=== PATIENT | male | born 1990 | race Caucasian/White ===

== ENCOUNTER 2017-06-10 23:08 | Emergency (ER) | payer SELFPAY, MEDICAID ==
[2017-06-10] MEDS: HYDROmorphONE 2 MG/ML SYG IV (23:38)
[2017-06-10] MEDS: ONDANSETRON 4 MG INJ IV (23:38)
[2017-06-10] MEDS: CEFTRIAXONE 1 GM/50 ML (PMX) 50 ML IVPB (23:39)
[2017-06-11 00:04] LABS: ANION GAP 22 (8-16); BLOOD UREA NITROGEN 14 mg/dl (7-20); CALCIUM 9.6 mg/dl (8.4-10.2); CARBON DIOXIDE 20 mmol/L (21-31); CHLORIDE 105 mmol/L (97-110); CREATININE 1.28 mg/dl (0.61-1.24); GLUCOSE 116 mg/dl (70-220); POTASSIUM 3.2 mmol/L (3.5-5.1); SODIUM 144 mmol/L (135-144)
[2017-06-11] MEDS: IOHEXOL 300MG/ML 150 ML BTL (00:09)
[2017-06-11] MEDS: SOD CHLORIDE 0.9% 100 ML (00:10)
[2017-06-11] MEDS: HYDROmorphONE 0.5 MG/0.5 ML SYG IV (00:38)
[2017-06-11] MEDS: ONDANSETRON 4 MG INJ IV ×2 (00:38→02:32)
[2017-06-11] MEDS: SOD CHLORIDE 0.9% 1,000 ML IV (00:41)
[2017-06-11] MEDS: HYDROmorphONE 2 MG/ML SYG IV (02:32)
== END 2017-06-11 06:08 | disposition home or self-care (01) ==
LOC: E/R 23:08
DX: S71.102A Unspecified open wound, left thigh, initial encounter (principal); S71.112A Laceration without foreign body, left thigh, initial encounter; W34.00XA Accidental discharge from unspecified firearms or gun, initial encounter; Y92.9 Unspecified place or not applicable
CPT/HCPCS: 73140; 73550; 73706; 80048; 96374; 96375; 96376; 99285-25

== ENCOUNTER 2017-06-16 15:34 | Emergency (ER) | payer OTHER, MEDICAID ==
[2017-06-16] MEDS: DIPHTH/TET/ACEL PERTUSS (ADULT) 0.5 ML VIAL IM* (16:36)
== END 2017-06-16 16:06 | disposition home or self-care (01) ==
LOC: E/R 16:06
DX: Z48.02 Encounter for removal of sutures (principal); Z23 Encounter for immunization; Z48.01 Encounter for change or removal of surgical wound dressing
CPT/HCPCS: 90471; 90715; 99283-25